=== PATIENT | female | born 1975 | race Caucasian/White ===

== ENCOUNTER 2016-10-28 09:32 | Emergency (ER) | payer SELFPAY ==
[~2016-10-28] VITALS: Ht 180.3 cm; Wt 97.5 kg
[2016-10-28 09:33] VITALS: BP 201/113; PULSE 76; RESP 18; TEMP 98; O2SAT 98
[2016-10-28 09:35] VITALS: BP 173/101; PULSE 65; RESP 16; O2SAT 99
[2016-10-28] MEDS ORDERED: POLY10O LEFT EYE (09:52)
[2016-10-28] MEDS ORDERED: AMLO5 PO (09:52)
--- NOTE | 2016-10-28 09:52 | PD ---
HPI Chief Complaint: Eye Problems/Injury Time Seen by Provider: 09:42 Travel History International Travel<30 days: No Contact w/Intl Traveler<30days: No Traveled to known affect area: No History of Present Illness HPI The patient is a 40-year-old female who presents emergency department for left eye complaint. The patient notes a one-day history of left eye redness , itching, and matting. The patient states when she awakened this morning she had matting across the eyelashes as well as a smaller drainage. She does complain of mild periorbital edema and itching. She also complains of mild redness, but denies any visual acuity changes. She does have a history of conjunctivitis in the past with similar symptoms. She also notes a history of hypertension or last several years, however, has not been on medication since November 2015. She does not currently have a primary physician. She denies any acute chest pain, shortness of breath, or chest pain. Symptoms are moderate, there are no current alleviating or exacerbating factors. PFSH Past Medical History Depression: Yes High Cholesterol: Yes Diabetes: No Diminished Hearing: No Hypertension: Yes Immunizations Current: Yes ?: Not LMP: CURRENTLY ON MENSES : 1 Para: 1 Past Surgical History Oral Surgery: Yes (WISDOM TEETH EXTRACTED) Social History Alcohol Use: Yes (SOCIALLY) Tobacco Use: No (quit) Substance Use: No Allergies-Medications (Allergen,Severity, Reaction): Coded Allergies: Enalapril (Verified Allergy, Intermediate, Edema and a rash, 10/28/16) Citalopram (Verified Adverse Reaction, Severe, Dizzyness , 10/28/16) Reported Meds & Prescriptions Reported Meds & Active Scripts Active Review of Systems Except as stated in HPI: all other systems reviewed are Neg Eyes: Positive: Drainage, Redness, Tearing HENT: No: Headaches Cardiovascular: No: Chest Pain or Discomfort Respiratory: No: Shortness of Breath Gastrointestinal: No: Nausea, Vomiting Musculoskeletal: No: Edema Physical Exam Narrative GENERAL: Awake, alert, nontoxic-appearing 40-year-old female who appears her stated age and is in no acute respiratory distress. SKIN: Warm and dry. HEAD: Atraumatic. Normocephalic. EYES: Pupils equal and round. Pupils are 4 mm bilateral and reactive. EOMs are intact. Minimal injection of the left conjunctiva. No obvious drainage or matting. Vision is intact of the distance of 2 feet to fingers. ENT: No nasal bleeding or discharge. Mucous membranes pink and moist. NECK: Trachea midline. No JVD. CARDIOVASCULAR: Regular rate and rhythm. No murmur appreciated. RESPIRATORY: No accessory muscle use. Clear to auscultation. Breath sounds equal bilaterally. MUSCULOSKELETAL: No obvious deformities. No clubbing. No cyanosis. No edema. NEUROLOGICAL: Awake and alert. No obvious cranial nerve deficits. Motor grossly within normal limits. Normal speech. PSYCHIATRIC: Appropriate mood and affect; insight and judgment normal. Data Data Last Documented VS Vital Signs Date Time Temp Pulse Resp B/P Pulse Ox O2 Delivery O2 Flow Rate FiO2 10/28/16 09:35 65 16 173/101 99 10/28/16 09:33 98.0 Room Air Orders Amlodipine (Norvasc) (10/28/16 10:00) [facility] Medical Decision Making Medical Screen Exam Complete: Yes Emergency Medical Condition: Yes Medical Record Reviewed: Yes Differential Diagnosis Differential diagnosis includes conjunctivitis, glaucoma, corneal abrasion, corneal ulceration, asymptomatic hypertension. Narrative Course The patient was administered Norvasc 5 mg orally. The patient will be placed on Norvasc 5 mg per day for hypertension, is advised to monitor her blood pressure weekly and to follow-up with a primary physician. The patient will also be placed on Polytrim. She is advised to follow-up with her primary physician and return if symptoms worsen or progress. Diagnosis Primary Impression: Conjunctivitis, left eye Qualified Code: H10.32 - Acute conjunctivitis of left eye, unspecified acute conjunctivitis type Additional Impression: Hypertension Qualified Code: I10 - Essential hypertension Patient Instructions: General Instructions Additional Instructions: Medications as directed. Follow-up with your primary physician. Return if symptoms worsen or progress. Med/Other Pt SpecificInfo: Prescription(s) given Scripts Amlodipine (Norvasc)5 Mg Tab5 Mg PO DAILY #30 TAB Ref 2 Prov:Mele Morales MD 10/28/16 Polymyxin B-Trimethoprim Opth Drops (Polytrim Opth Drops)10,000-0.1 Unit/Ml-% Soln1 Drop LEFT EYE Q6HR 7 Days Ref 0 Prov:Mele Morales MD 10/28/16 Disposition: 01 DISCHARGE HOME Condition: Stable Mele Morales MD Oct 28, 2016 09:52
[2016-10-28] MEDS ORDERED: amLODIPine BESYLATE 5 MG TAB PO ONE (10:00)
[2017-01-09] MEDS ORDERED: LOSA50TA PO (14:48)
== END 2016-10-28 10:07 | disposition home or self-care (01) ==
LOC: NEPA 09:32
DX: H10.32 Unspecified acute conjunctivitis, left eye (principal); I10 Essential (primary) hypertension; E78.00 Pure hypercholesterolemia, unspecified; Z87.891 Personal history of nicotine dependence
CPT/HCPCS: 99282

== ENCOUNTER 2016-12-22 09:48 | Emergency (ER) | payer SELFPAY ==
[~2016-12-22] VITALS: Ht 180.3 cm; Wt 100.0 kg
[~2016-12-22 09:48] MED LIST: AMLO5 PO; POLY10O LEFT EYE
[2016-12-22 09:49] VITALS: BP 162/90; PULSE 66; RESP 20; TEMP 98.4; O2SAT 99
[2016-12-22] MEDS ORDERED: LOSA50TA PO (10:26)
[2016-12-22] MEDS ORDERED: CLIN1CAP5 PO (10:42)
--- NOTE | 2016-12-22 10:43 | PD ---
HPI Chief Complaint: Skin Problem Time Seen by Provider: 10:39 Travel History International Travel<30 days: No Contact w/Intl Traveler<30days: No Traveled to known affect area: No History of Present Illness HPI 41-year-old female presents to emergency Department with complaint of a rash to her posterior left thigh 3 days. She says it started out as small little bumps and now they are pustules. She doesn't recall being bit by any type of insect. Reports the rash is itchy. Denies fever or vomiting. Denies new lotions, soaps, detergents, medications, foods, and prior mental exposures. Has not taken any medications or try treatments to alleviate her symptoms. Allergies to citalopram, enalapril, Norvasc. Has no other medical complaints. No other factors or associated signs and symptoms. PFSH Past Medical History Depression: Yes Cardiovascular Problems: Yes (htn) High Cholesterol: Yes Diabetes: No Diminished Hearing: No Hypertension: Yes Immunizations Current: Yes Tetanus Vaccination: < 5 Years Influenza Vaccination: Yes ?: Not LMP: 12/19/16 : 1 Para: 1 Past Surgical History Oral Surgery: Yes (WISDOM TEETH EXTRACTED) Social History Alcohol Use: No Tobacco Use: No Substance Use: No Allergies-Medications (Allergen,Severity, Reaction): Coded Allergies: Enalapril (Verified Allergy, Intermediate, Edema and a rash, 12/22/16) Norvasc (Verified Allergy, Intermediate, leg swelling, 12/22/16) Citalopram (Verified Adverse Reaction, Severe, Dizzyness , 12/22/16) Reported Meds & Prescriptions Reported Meds & Active Scripts Active Clindamycin (Clindamycin HCl) 150 Mg Cap 450 Mg PO Q6H 10 Days Reported Losartan (Losartan Potassium) 50 Mg Tab 50 Mg PO DAILY Review of Systems Except as stated in HPI: all other systems reviewed are Neg Physical Exam Narrative GENERAL: Well-nourished, well-developed female patient, in no acute distress SKIN: Warm and dry. Small grouped area of multiple pustules surrounded by an area of erythema consistent with cellulitis; pustules are closed and without drainage. HEAD: Atraumatic. Normocephalic. EYES: Pupils equal and round. No scleral icterus. No injection or drainage. ENT: Mucosa pink and moist. Airway patent. NECK: Trachea midline. CARDIOVASCULAR: Regular rate. RESPIRATORY: No accessory muscle use. GASTROINTESTINAL: Rounded. MUSCULOSKELETAL: No obvious deformities. No clubbing. No cyanosis. No edema. NEUROLOGICAL: Awake and alert. Oriented 3. No obvious cranial nerve deficits. Motor grossly within normal limits. Normal speech. PSYCHIATRIC: Appropriate mood and affect; insight and judgment normal. Data Data Last Documented VS Vital Signs Date Time Temp Pulse Resp B/P Pulse Ox O2 Delivery O2 Flow Rate FiO2 12/22/16 09:49 98.4 66 20 162/90 99 Room Air Orders Wound Culture And Gram Stain (12/22/16 10:49) [facility] Medical Decision Making Medical Screen Exam Complete: Yes Emergency Medical Condition: Yes Medical Record Reviewed: Yes Differential Diagnosis And bite, insect bite, cellulitis, nonspecific rash Narrative Course 41-year-old female with an area of a grouped pustular rash to the posterior left thigh. Seems to be consistent with possible ant bites. There is an area of erythema surrounding the pustules that is consistent with cellulitis. See my procedure note for obtaining wound culture. Clindamycin prescribed for home. Patient verbalizes understanding and agreement with treatment plan. Patient is medically cleared and stable for discharge. Discussed reasons to return to the emergency department. Instructed patient to follow up with primary care provider. Patient agrees with treatment plan. The patients vital signs are stable and the patient is stable for outpatient follow-up and treatment. Patient discharged home, stable and in no acute distress. Procedures Procedure Narrative Drainage or pustules: An 18-gauge needle was used to lift the skin of the pustule areas. Wound culture obtained. Sterile dressing applied. Patient tolerated well. Diagnosis Primary Impression: Rash and nonspecific skin eruption Referrals: Chart Changer Primary Care Physician Patient Instructions: Acute Rash (ED), Cellulitis (ED), General Instructions, Insect Bite or Sting (ED) Departure Forms: Tests/Procedures, Work Release Enter return to work date: December 23, 2016 Additional Instructions: Antibiotics as prescribed [id number] topicals to reduce itch Benadryl as directed and as needed to reduce itch Follow-up with your primary care provider Return to the emergency department immediately, particularly if difficulty breathing, swelling of the airway Med/Other Pt SpecificInfo: Prescription(s) given Scripts Clindamycin 150 Mg Spy239 Mg PO Q6H 10 Days Ref 0 Prov:Aline Biswas 12/22/16 Disposition: 01 DISCHARGE HOME Condition: Stable Aline Biswas December 22, 2016 10:43
[2017-01-09] MEDS ORDERED: LOSA50TA PO (14:48)
== END 2016-12-22 10:53 | disposition home or self-care (01) ==
LOC: NEPK 09:48
DX: R21 Rash and other nonspecific skin eruption (principal); I10 Essential (primary) hypertension
CPT/HCPCS: 10140; 87070

== ENCOUNTER 2017-02-13 17:33 | Emergency (ER) | payer SELFPAY ==
[~2017-02-13] VITALS: Ht 180.3 cm; Wt 100.0 kg
[~2017-02-13 17:33] MED LIST changes: -AMLO5 PO; +LOSA50TA PO; -POLY10O LEFT EYE
[2017-02-13 17:35] VITALS: BP 212/100; PULSE 64; RESP 20; TEMP 98.7; O2SAT 99
--- NOTE | 2017-02-13 17:43 | PD ---
Physical Exam Time Seen by Provider: 17:40 Narrative 41yo F c/o continued vag bleeding after polyp removed from uterus one month ago by Dr. Loredo. Spoke with PCP, Dr. Henderson, this morning and was told to come to ER. Reports lower abd cramping, like when shes on her period. Robby fever, vomiting. Robby lightheadedness, dizziness, fatigue. Patient seen in triage. VS reviewed. Awaiting bed placement. Data Data Last Documented VS Vital Signs Date Time Temp Pulse Resp B/P Pulse Ox O2 Delivery O2 Flow Rate FiO2 02/13/17 17:35 98.7 64 20 212/100 99 Room Air MDM Supervised Visit with SONIYA: Aline Mohan Feb 13, 2017 17:43
[2017-02-13 18:00] VITALS: BP 204/106
--- NOTE | 2017-02-13 18:17 | PD ---
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 Time Seen by Provider: 18:17 Travel History International Travel<30 days: No Contact w/Intl Traveler<30days: No Traveled to known affect area: No PFSH Past Medical History Depression: Yes Cardiovascular Problems: Yes (HTN) High Cholesterol: Yes Diabetes: No Diminished Hearing: No Hypertension: Yes Immunizations Current: Yes Tetanus Vaccination: < 5 Years ?: Not : 1 Para: 1 Past Surgical History Gynecologic Surgery: Yes (pylops) Oral Surgery: Yes (WISDOM TEETH EXTRACTED) Social History Alcohol Use: No Tobacco Use: No Substance Use: No Allergies-Medications (Allergen,Severity, Reaction): Coded Allergies: Enalapril (Verified Allergy, Intermediate, Edema and a rash, 02/13/17) Norvasc (Verified Allergy, Intermediate, leg swelling, 02/13/17) Citalopram (Verified Adverse Reaction, Severe, Dizzyness , 02/13/17) Reported Meds & Prescriptions Reported Meds & Active Scripts Active Ortho Tri-Cyclen (Norgestimate-Ethinyl Estradiol) 0.18/0.215/0.25 mg-35 Mcg Tab 1 Tab PO DAILY Losartan (Losartan Potassium) 50 Mg Tab 50 Mg PO DAILY Data Data Last Documented VS Vital Signs Date Time Temp Pulse Resp B/P Pulse Ox O2 Delivery O2 Flow Rate FiO2 02/13/17 19:30 54 16 175/87 100 Room Air 02/13/17 17:35 98.7 Orders Complete Blood Count With Diff (02/13/17 18:33) Basic Metabolic Panel (Bmp) (02/13/17 18:33) Norethindrone-Ethinyl Est 1-35 (Necon 1- (02/13/17 18:45) Potassium Chloride Eff (K-Lyte Cl Eff) (02/13/17 19:45) Labs Laboratory Tests Test 02/13/17 18:45 White Blood Count 7.0 TH/MM3 Red Blood Count 4.45 MIL/MM3 Hemoglobin 12.7 GM/DL Hematocrit 37.4 % Mean Corpuscular Volume 84.0 FL Mean Corpuscular Hemoglobin 28.4 PG Mean Corpuscular Hemoglobin 33.8 % Concent Red Cell Distribution Width 15.1 % Platelet Count 342 TH/MM3 Mean Platelet Volume 7.2 FL Neutrophils (%) (Auto) 44.1 % Lymphocytes (%) (Auto) 41.1 % Monocytes (%) (Auto) 11.5 % Eosinophils (%) (Auto) 2.6 % Basophils (%) (Auto) 0.7 % Neutrophils # (Auto) 3.1 TH/MM3 Lymphocytes # (Auto) 2.9 TH/MM3 Monocytes # (Auto) 0.8 TH/MM3 Eosinophils # (Auto) 0.2 TH/MM3 Basophils # (Auto) 0.0 TH/MM3 CBC Comment DIFF FINAL Differential Comment Sodium Level 142 MEQ/L Potassium Level 3.3 MEQ/L Chloride Level 108 MEQ/L Carbon Dioxide Level 24.7 MEQ/L Anion Gap 9 MEQ/L Blood Urea Nitrogen 12 MG/DL Creatinine 0.70 MG/DL Estimat Glomerular Filtration 91 ML/MIN Rate Random Glucose 80 MG/DL Calcium Level 8.7 MG/DL MDM Scripts Norgestimate-Ethinyl Estradiol (Ortho Tri-Cyclen)0.18/0.215/0.25 mg-35 Mcg Tab1 Tab PO DAILY #1 PACK Ref 0 Prov:Rhoda Somers MD 02/13/17 Rhoda Somers MD Feb 13, 2017 18:17 Prov:Rhoda Somers MD 02/13/17 Rhoda Somers MD Feb 13, 2017 18:17
[2017-02-13] MEDS ORDERED: NORETHINDRONE ETHINYL ESTRADIOL PO SCH (18:45)
[2017-02-13 19:15] LABS: AUTOMATED NEUTROPHIL # 3.1 TH/MM3 (1.8-7.7); BASOPHIL % 0.7 % (0.0-2.0); EOSINOPHIL # 0.2 TH/MM3 (0-0.4); EOSINOPHIL % 2.6 % (0.0-4.0); HEMATOCRIT 37.4 % (35.0-46.0); HEMO FLAGS DIFF FINAL; LYMPH % 41.1 % (9.0-44.0); LYMPHOCYTE # 2.9 TH/MM3 (1.0-4.8); MEAN CORPUSCULAR HEMOGLOBIN 28.4 PG (27.0-34.0); MEAN CORPUSCULAR HGB CONC 33.8 % (32.0-36.0); MONO % 11.5 % (0.0-8.0); NEUT % 44.1 % (16.0-70.0); PLATELET COUNT 342 TH/MM3 (150-450); RED BLOOD COUNT 4.45 MIL/MM3 (4.00-5.30); RED CELL DISTRIBUTION WIDTH 15.1 % (11.6-17.2)
--- NOTE | 2017-02-13 19:27 | PD ---
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 Patient says that she had a SENIOR PRODUCT DEVELOPMENT MANAGER procedure done where they had scraped a polyp off since she was bleeding on and off for a long time. This was done on January 29 and she has been bleeding since then. She says the bleeding has slowed down a little bit. Initially she was soaking a tampon every 2 hours or so. She was also passing large clots. Today so far she has changed 3 tampons. Her clots have subsided to some extent. She called her SENIOR PRODUCT DEVELOPMENT MANAGER office this afternoon and was asked to come to the emergency room to be evaluated. She does not appear to be in any significant distress. Patient has been hypertensive. Patient is not on any medications currently. [facility] Past Medical History Narrative Medical List of her past medical, surgical, social and family history is reviewed from the nursing note. Depression: Yes Cardiovascular Problems: Yes (HTN) High Cholesterol: Yes Diabetes: No Diminished Hearing: No Hypertension: Yes Immunizations Current: Yes Tetanus Vaccination: < 5 Years ?: Not : 1 Para: 1 Past Surgical History Gynecologic Surgery: Yes (pylops) Oral Surgery: Yes (WISDOM TEETH EXTRACTED) Social History Alcohol Use: No Tobacco Use: No Substance Use: No Allergies-Medications (Allergen,Severity, Reaction): Coded Allergies: Enalapril (Verified Allergy, Intermediate, Edema and a rash, 02/13/17) Norvasc (Verified Allergy, Intermediate, leg swelling, 02/13/17) Citalopram (Verified Adverse Reaction, Severe, Dizzyness , 02/13/17) Comments List of her allergies reviewed from the nursing note. Reported Meds & Prescriptions Reported Meds & Active Scripts Active Ortho Tri-Cyclen (Norgestimate-Ethinyl Estradiol) 0.18/0.215/0.25 mg-35 Mcg Tab 1 Tab PO DAILY Losartan (Losartan Potassium) 50 Mg Tab 50 Mg PO DAILY Narrative Medication List of her home medications reviewed from the nursing note. Review of Systems Except as stated in HPI: all other systems reviewed are Neg Physical Exam Narrative GENERAL: Awake, alert, no obvious distress SKIN: Focused skin assessment warm/dry. HEAD: Atraumatic. Normocephalic. EYES: Pupils equal and round. No scleral icterus. No injection or drainage. ENT: No nasal bleeding or discharge. Mucous membranes pink and moist. NECK: Trachea midline. No JVD. CARDIOVASCULAR: Regular rate and rhythm. No murmur appreciated. RESPIRATORY: No accessory muscle use. Clear to auscultation. Breath sounds equal bilaterally. GASTROINTESTINAL: Abdomen soft, non-tender, nondistended. Hepatic and splenic margins not palpable. MUSCULOSKELETAL: No obvious deformities. No clubbing. No cyanosis. No edema. NEUROLOGICAL: Awake and alert. No obvious cranial nerve deficits. Motor grossly within normal limits. Normal speech. PSYCHIATRIC: Appropriate mood and affect; insight and judgment normal. Data Data Last Documented VS Vital Signs Date Time Temp Pulse Resp B/P Pulse Ox O2 Delivery O2 Flow Rate FiO2 02/13/17 19:30 54 16 175/87 100 Room Air 02/13/17 17:35 98.7 Orders Complete Blood Count With Diff (02/13/17 18:33) Basic Metabolic Panel (Bmp) (02/13/17 18:33) Norethindrone-Ethinyl Est 1-35 (Necon 1- (02/13/17 18:45) Potassium Chloride Eff (K-Lyte Cl Eff) (02/13/17 19:45) Labs Laboratory Tests Test 02/13/17 18:45 White Blood Count 7.0 TH/MM3 Red Blood Count 4.45 MIL/MM3 Hemoglobin 12.7 GM/DL Hematocrit 37.4 % Mean Corpuscular Volume 84.0 FL Mean Corpuscular Hemoglobin 28.4 PG Mean Corpuscular Hemoglobin 33.8 % Concent Red Cell Distribution Width 15.1 % Platelet Count 342 TH/MM3 Mean Platelet Volume 7.2 FL Neutrophils (%) (Auto) 44.1 % Lymphocytes (%) (Auto) 41.1 % Monocytes (%) (Auto) 11.5 % Eosinophils (%) (Auto) 2.6 % Basophils (%) (Auto) 0.7 % Neutrophils # (Auto) 3.1 TH/MM3 Lymphocytes # (Auto) 2.9 TH/MM3 Monocytes # (Auto) 0.8 TH/MM3 Eosinophils # (Auto) 0.2 TH/MM3 Basophils # (Auto) 0.0 TH/MM3 CBC Comment DIFF FINAL Differential Comment Sodium Level 142 MEQ/L Potassium Level 3.3 MEQ/L Chloride Level 108 MEQ/L Carbon Dioxide Level 24.7 MEQ/L Anion Gap 9 MEQ/L Blood Urea Nitrogen 12 MG/DL Creatinine 0.70 MG/DL Estimat Glomerular Filtration 91 ML/MIN Rate Random Glucose 80 MG/DL Calcium Level 8.7 MG/DL MDM Medical Decision Making Medical Screen Exam Complete: Yes Emergency Medical Condition: Yes Medical Record Reviewed: Yes Differential Diagnosis , postprocedural bleed Narrative Course 7:26 PM awaiting for the blood test results. CBC is back and H&H is within normal limit. I have asked the nurse to recycle the blood pressure. She was quite hypertensive in triage and then after coming in. 7:46 PM blood test results of back and within normal limits except for the potassium that's little low. I have ordered for placement. Blood pressure has come down. Procedures EKG Prior to Arrival: No Diagnosis Primary Impression: Dysfunctional uterine bleeding Additional Impressions: Postoperative vaginal bleeding following genitourinary procedure Hypertension Qualified Code: I10 - Essential hypertension Referrals: Primary Care Physician Additional Instructions: Please follow-up with your SENIOR PRODUCT DEVELOPMENT MANAGER surgeon on Thursday. Take the medications as per the prescription direction. Lots of fluid. Return to the ER if the condition worsens or any other new concerns. The blood pressure was high. Please take your blood pressure medication when you go home. Med/Other Pt SpecificInfo: Prescription(s) given Scripts Norgestimate-Ethinyl Estradiol (Ortho Tri-Cyclen)0.18/0.215/0.25 mg-35 Mcg Tab1 Tab PO DAILY #1 PACK Ref 0 Prov:Rhoda Somers MD 02/13/17 Disposition: DISCHARGE HOME Condition: Stable Rhoda Somers MD Feb 13, 2017 19:27
[2017-02-13 19:30] VITALS: BP 175/87; PULSE 54; RESP 16; O2SAT 100
[2017-02-13 19:42] LABS: BICARBONATE 24.7 MEQ/L (21.0-32.0); POTASSIUM 3.3 MEQ/L (3.5-5.1)
[2017-02-13] MEDS ORDERED: POTASSIUM CHLORIDE 25 MEQ EFFERVESCENT TAB PO ONE (19:45)
[2017-02-13] MEDS ORDERED: ORTHTAB4 PO (19:48)
== END 2017-02-13 20:07 | disposition home or self-care (01) ==
LOC: NEPD 17:33
DX: N93.8 Other specified abnormal uterine and vaginal bleeding (principal); N99.821 Postprocedural hemorrhage of a genitourinary system organ or structure following other procedure; I10 Essential (primary) hypertension; F32.9 Major depressive disorder, single episode, unspecified; E78.00 Pure hypercholesterolemia, unspecified; Z79.899 Other long term (current) drug therapy; Z88.8 Allergy status to other drugs, medicaments and biological substances
CPT/HCPCS: 80048; 85025; 99283

== ENCOUNTER 2017-11-18 20:01 | Emergency (ER) | payer SELFPAY ==
[~2017-11-18] VITALS: Ht 180.3 cm; Wt 103.7 kg
[~2017-11-18 20:01] MED LIST changes: +IBUP1TAB7 PO; +ORTHTAB4 PO; +SIMV20TA PO
[2017-11-18 20:27] VITALS: BP_SYST 226; BP_SYST 238; BP_DIAS 107; BP_DIAS 118; PULSE 71; RESP 18; TEMP 98.8; O2SAT 100
[2017-11-18 20:49] VITALS: BP 254/120; PULSE 63; RESP 18; O2SAT 97
[2017-11-18] MEDS ORDERED: SODIUM CHLORIDE 0.9% FLUSH 10 ML FLUSH IVF PRN (21:00)
[2017-11-18] MEDS ORDERED: hydrALAZINE HCL 20 MG/ML VIAL IV PUSH ONE ×2 (21:00→21:45)
--- NOTE | 2017-11-18 21:11 | PD ---
HPI Chief Complaint: ENT Complaint Time Seen by Provider: 20:48 Travel History International Travel<30 days: No Contact w/Intl Traveler<30days: No Traveled to known affect area: No History of Present Illness HPI Patient is a 42-year-old female presenting to the emergency department for evaluation of right ear pain. Patient states the pain is intermittent, started 1 week ago. She reports that it feels like she has a stabbing pain inside of her ear. She denies any fever, chills, nausea, vomiting, headache. Patient reports a history of hypertension, she reports compliance with medications. Patient states is on losartan 50 mg daily. She took her last dose this morning. Patient has no cardiac related complaints. Symptom onset was gradual , symptoms are mild in nature. There are no alleviating factors. PFSH Past Medical History Depression: Yes Cardiovascular Problems: Yes (HTN) High Cholesterol: Yes Diabetes: No Diminished Hearing: No Hypertension: Yes Immunizations Current: Yes Tetanus Vaccination: < 5 Years Influenza Vaccination: Yes ?: Not : 1 Para: 1 Past Surgical History Gynecologic Surgery: Yes (pylops) Oral Surgery: Yes (WISDOM TEETH EXTRACTED) Social History Alcohol Use: No Tobacco Use: No Substance Use: No Allergies-Medications (Allergen,Severity, Reaction): Coded Allergies: amlodipine (Unverified Allergy, Intermediate, leg swelling, 03/24/17) enalaprilat (Unverified Allergy, Intermediate, Edema and a rash, 03/24/17) citalopram (Unverified Adverse Reaction, Severe, Dizzyness , 03/24/17) Reported Meds & Prescriptions Reported Meds & Active Scripts Active Clonidine (Clonidine HCl) 0.1 Mg Tab 0.1 Mg PO BID Losartan (Losartan Potassium) 50 Mg Tab 50 Mg PO DAILY Review of Systems Except as stated in HPI: all other systems reviewed are Neg HENT: Positive: Earache Physical Exam Narrative GENERAL: Overweight, well-developed, alert female. Presenting in no acute distress. SKIN: Warm and dry. HEAD: Atraumatic. Normocephalic. EYES: Pupils equal and round. No scleral icterus. No injection or drainage. Bilateral tympanic membranes without erythema or bulging. ENT: No nasal bleeding or discharge. Mucous membranes pink and moist. NECK: Trachea midline. No JVD. CARDIOVASCULAR: Regular rate and rhythm. RESPIRATORY: No accessory muscle use. Clear to auscultation. Breath sounds equal bilaterally. GASTROINTESTINAL: Abdomen soft, non-tender, nondistended. Hepatic and splenic margins not palpable. MUSCULOSKELETAL: Extremities without clubbing, cyanosis, or edema. No obvious deformities. NEUROLOGICAL: Awake and alert. No obvious cranial nerve deficits. Motor grossly within normal limits. Five out of 5 muscle strength in the arms and legs. Normal speech. PSYCHIATRIC: Appropriate mood and affect; insight and judgment normal. Data Data Last Documented VS Vital Signs Date Time Temp Pulse Resp B/P (MAP) Pulse Ox O2 Delivery O2 Flow Rate FiO2 11/19/17 01:54 11/19/17 01:21 70 16 99 Room Air 11/18/17 20:27 98.8 Orders Orders Electrocardiogram (11/18/17 20:55) Basic Metabolic Panel (Bmp) (11/18/17 20:55) Complete Blood Count With Diff (11/18/17 20:55) Magnesium (Mg) (11/18/17 20:55) Ecg Monitoring (11/18/17 20:55) Iv Access Insert/Monitor (11/18/17 20:55) Oximetry (11/18/17 20:55) Sodium Chloride 0.9% Flush (Ns Flush) (11/18/17 21:00) Hydralazine Inj (Apresoline Inj) (11/18/17 21:00) Hydralazine Inj (Apresoline Inj) (11/18/17 21:45) Metoprolol Tartrate Inj (Lopressor Inj) (11/18/17 22:30) Clonidine (Catapres) (11/19/17 00:00) Ed Discharge Order (11/19/17 01:18) Labs Laboratory Tests Test 11/18/17 21:00 White Blood Count 9.7 TH/MM3 Red Blood Count 4.86 MIL/MM3 Hemoglobin 13.5 GM/DL Hematocrit 40.3 % Mean Corpuscular Volume 82.8 FL Mean Corpuscular Hemoglobin 27.8 PG Mean Corpuscular Hemoglobin Concent 33.6 % Red Cell Distribution Width 14.4 % Platelet Count 437 TH/MM3 Mean Platelet Volume 7.5 FL Neutrophils (%) (Auto) 52.7 % Lymphocytes (%) (Auto) 35.6 % Monocytes (%) (Auto) 8.8 % Eosinophils (%) (Auto) 2.3 % Basophils (%) (Auto) 0.6 % Neutrophils # (Auto) 5.1 TH/MM3 Lymphocytes # (Auto) 3.5 TH/MM3 Monocytes # (Auto) 0.8 TH/MM3 Eosinophils # (Auto) 0.2 TH/MM3 Basophils # (Auto) 0.1 TH/MM3 CBC Comment DIFF FINAL Differential Comment Blood Urea Nitrogen 11 MG/DL Creatinine 0.78 MG/DL Random Glucose 89 MG/DL Calcium Level 8.8 MG/DL Magnesium Level 2.0 MG/DL Sodium Level 141 MEQ/L Potassium Level 3.2 MEQ/L Chloride Level 106 MEQ/L Carbon Dioxide Level 26.2 MEQ/L Anion Gap 9 MEQ/L Estimat Glomerular Filtration Rate 80 ML/MIN MDM Medical Decision Making Medical Screen Exam Complete: Yes Emergency Medical Condition: Yes Interpretation(s) Vital Signs Date Time Temp Pulse Resp B/P (MAP) Pulse Ox O2 Delivery O2 Flow Rate FiO2 11/18/17 20:49 63 18 254/120 (164) 97 Room Air 11/18/17 20:27 98.8 71 18 238/118 (158) 100 226/107 (146) Differential Diagnosis Hypertensive urgency versus otitis media versus otitis externa versus other Narrative Course Patient is a 42-year-old female presenting to emerge from for evaluation of right ear pain. On arrival patient was significantly hypertensive. She has a history of the same. She had no physical complaints other than the earache. Ear exam is unremarkable. Medications ordered to lower blood pressure. Patient was given hydralazine 10 mg 1 dose. Her blood pressure remained elevated. She is given a second dose of hydralazine. Her blood pressure trended down slightly, a dose of Lopressor was ordered. Care of patient transferred to my attending physician who will determine patient's disposition. Patient is resting comfortably. Scripts Clonidine (Clonidine) 0.1 Mg Tab 0.1 MG PO BID for Blood Pressure Management, #30 TAB 2 Refills Prov: Connor Tyson MD 11/19/17 Adriana Blackwell Nov 18, 2017 21:11
[2017-11-18 21:21] VITALS: BP 220/105; PULSE 71; RESP 18; O2SAT 99
[2017-11-18 22:13] LABS: AUTOMATED NEUTROPHIL # 5.1 TH/MM3 (1.8-7.7); BASOPHIL # 0.1 TH/MM3 (0-0.2); BASOPHIL % 0.6 % (0.0-2.0); EOSINOPHIL # 0.2 TH/MM3 (0-0.4); EOSINOPHIL % 2.3 % (0.0-4.0); HEMATOCRIT 40.3 % (35.0-46.0); HEMOGLOBIN 13.5 GM/DL (11.6-15.3); LYMPH % 35.6 % (9.0-44.0); LYMPHOCYTE # 3.5 TH/MM3 (1.0-4.8); MEAN CELL VOLUME 82.8 FL (80.0-100.0); MEAN CORPUSCULAR HEMOGLOBIN 27.8 PG (27.0-34.0); MEAN CORPUSCULAR HGB CONC 33.6 % (32.0-36.0); MEAN PLATELET VOLUME 7.5 FL (7.0-11.0); MONO % 8.8 % (0.0-8.0); MONOCYTE # 0.8 TH/MM3 (0-0.9); NEUT % 52.7 % (16.0-70.0); PLATELET COUNT 437 TH/MM3 (150-450); RED BLOOD COUNT 4.86 MIL/MM3 (4.00-5.30); RED CELL DISTRIBUTION WIDTH 14.4 % (11.6-17.2); WHITE BLOOD COUNT 9.7 TH/MM3 (4.0-11.0)
[2017-11-18 22:23] VITALS: BP 211/93; PULSE 71; RESP 18; O2SAT 99
[2017-11-18] MEDS ORDERED: METOPROLOL TARTRATE 5 MG/5 ML VIAL IV PUSH ONE (22:30)
[2017-11-18 22:35] LABS: BICARBONATE 26.2 MEQ/L (21.0-32.0); CALCIUM 8.8 MG/DL (8.5-10.1); CREATININE 0.78 MG/DL (0.50-1.00)
[2017-11-18 23:42] VITALS: BP 182/88; PULSE 72; RESP 18; O2SAT 100
[2017-11-19] MEDS ORDERED: cloNIDine HCL 0.1 MG TAB PO ONE
[2017-11-19 00:46] VITALS: BP 214/98; PULSE 75; RESP 18; O2SAT 99
[2017-11-19] MEDS ORDERED: CLON0.1T PO (01:18)
--- NOTE | 2017-11-19 01:18 | PD ---
Physical Exam Date Seen by Provider: Nov 19, 2017 Time Seen by Provider: 00:30 Narrative Patient is a 42-year-old female signed out to me by the PA I am following her blood pressure she has received hydralazine IV hydralazine IV and then a small dose of Lopressor IV then I added p.o. clonidine which I will discharge her on after a few hours on the clonidine her pressure comes down to 168/70. She is safe for discharge with close follow-up she is an outpatient doctor I will give her clonidine 0.1 mg twice daily and observe him for home blood pressure monitor cuff Data Data Last Documented VS Orders Orders Electrocardiogram (11/18/17 20:55) Basic Metabolic Panel (Bmp) (11/18/17 20:55) Complete Blood Count With Diff (11/18/17 20:55) Magnesium (Mg) (11/18/17 20:55) Ecg Monitoring (11/18/17 20:55) Iv Access Insert/Monitor (11/18/17 20:55) Oximetry (11/18/17 20:55) Sodium Chloride 0.9% Flush (Ns Flush) (11/18/17 21:00) Hydralazine Inj (Apresoline Inj) (11/18/17 21:00) Hydralazine Inj (Apresoline Inj) (11/18/17 21:45) Metoprolol Tartrate Inj (Lopressor Inj) (11/18/17 22:30) Clonidine (Catapres) (11/19/17 00:00) Ed Discharge Order (11/19/17 01:18) Labs Laboratory Tests Test 11/18/17 21:00 White Blood Count 9.7 TH/MM3 Red Blood Count 4.86 MIL/MM3 Hemoglobin 13.5 GM/DL Hematocrit 40.3 % Mean Corpuscular Volume 82.8 FL Mean Corpuscular Hemoglobin 27.8 PG Mean Corpuscular Hemoglobin Concent 33.6 % Red Cell Distribution Width 14.4 % Platelet Count 437 TH/MM3 Mean Platelet Volume 7.5 FL Neutrophils (%) (Auto) 52.7 % Lymphocytes (%) (Auto) 35.6 % Monocytes (%) (Auto) 8.8 % Eosinophils (%) (Auto) 2.3 % Basophils (%) (Auto) 0.6 % Neutrophils # (Auto) 5.1 TH/MM3 Lymphocytes # (Auto) 3.5 TH/MM3 Monocytes # (Auto) 0.8 TH/MM3 Eosinophils # (Auto) 0.2 TH/MM3 Basophils # (Auto) 0.1 TH/MM3 CBC Comment DIFF FINAL Differential Comment Blood Urea Nitrogen 11 MG/DL Creatinine 0.78 MG/DL Random Glucose 89 MG/DL Calcium Level 8.8 MG/DL Magnesium Level 2.0 MG/DL Sodium Level 141 MEQ/L Potassium Level 3.2 MEQ/L Chloride Level 106 MEQ/L Carbon Dioxide Level 26.2 MEQ/L Anion Gap 9 MEQ/L Estimat Glomerular Filtration Rate 80 ML/MIN MDM Supervised Visit with SONIYA: Yes Narrative Course Patient is safe for discharge her BP now is 168/70 she has no symptoms and safe for discharge with a prescription for clonidine Diagnosis Primary Impression: HTN (hypertension) Qualified Codes: I10 - Essential (primary) hypertension Scripts Clonidine (Clonidine) 0.1 Mg Tab 0.1 MG PO BID for Blood Pressure Management, #30 TAB 2 Refills Prov: Connor Tyson MD 11/19/17 Disposition: DISCHARGE HOME Condition: Good Connor Tyson MD Nov 19, 2017 01:18
[2017-11-19 01:21] VITALS: BP 161/78; PULSE 70; RESP 16; O2SAT 99
--- NOTE | 2017-11-19 20:39 | EKG ---
Date Performed: 11/18/2017 Time Performed: 21:06:12 PTAGE: 42 years EKG: Sinus rhythm Compared to previous tracing, sinus rate is faster NORMAL ECG PREVIOUS TRACING : 01/17/1996 07.22 DOCTOR: Chester Aiken Interpretating Date/Time 11/19/2017 20:37:28
== END 2017-11-19 01:59 | disposition home or self-care (01) ==
LOC: NEPE 20:01
DX: I10 Essential (primary) hypertension (principal); H92.01 Otalgia, right ear; F32.9 Major depressive disorder, single episode, unspecified; E78.00 Pure hypercholesterolemia, unspecified; Z79.899 Other long term (current) drug therapy; Z88.8 Allergy status to other drugs, medicaments and biological substances
CPT/HCPCS: 80048; 83735; 85025; 93005; 96374; 96375; 96376; 99284; J0360